=== PATIENT | female | born 1980 | race Caucasian/White ===

== ENCOUNTER 2023-02-22 08:55 | Outpatient (CLI) | payer BC, SELFPAY | END 2023-02-22 08:56 | disposition home or self-care (01) | PROVIDERS: PCP Family Medicine; Visit Provider Family Medicine | DX: Z98.84 Bariatric surgery status (principal) | CPT/HCPCS: 80053; 82306; 82607; 82728; 84443; 85025 ==

== ENCOUNTER 2024-04-24 14:02 | Outpatient (CLI) | payer BC, SELFPAY | END 2024-04-24 14:03 | disposition home or self-care (01) | PROVIDERS: PCP Family Medicine; Visit Provider Family Medicine | DX: Z98.890 Other specified postprocedural states (principal) | CPT/HCPCS: 80048; 82306; 82607; 82728; 85025 ==